=== PATIENT | male | born 1960 | race Caucasian/White ===

== ENCOUNTER 2019-06-04 07:10 | Emergency (ER) | payer BC ==
[~2019-06-04] VITALS: Ht 167.6 cm; Wt 78.0 kg
[~2019-06-04 07:10] MED LIST: ASPIRIN325 PO; FISH OIL 1,001000 M2 PO; HYDROCODON-ACE1 EAC7 PO; LIPITOR 20 MG T20 M1 PO; NOHOMEMEDICATIONS; PAXIL10 MG; PERCOCET 5-3251 EACH PO; PRILOSEC20 MG PO; RANITIDINE HCL300 M1 PO
[2019-06-04] MEDS ORDERED: NORVASC5 MG PO (07:18)
[2019-06-04 08:06] LABS: ABSOLUTE BASOPHILS 0.1 thou/uL (0.0-0.2); ABSOLUTE EOSINOPHILS 0.2 thou/uL (0.0-0.7); ABSOLUTE LYMPHOCYTES 1.4 thou/uL (0.8-5.3); ABSOLUTE MONOCYTES 0.7 thou/uL (0.0-1.2); ABSOLUTE NEUTROPHILS 10.8 thou/uL (1.6-8.1); BASOPHILS 0.5 %; EOSINOPHILS 1.6 %; HEMATOCRIT 45.9 % (42.0-52.0); HEMOGLOBIN 15.8 gm/dL (14.0-18.0); LYMPHOCYTES 10.6 %; MCHC 34.5 g/dL (28.0-37.0); MONOCYTES 5.1 %; MPV 9.1 fl. (7.2-11.1); NUCLEATED RBCS 0 /100WBC; PLATELET COUNT* 226 thou/uL (150-400); POLYS 82.2 %; RBC 5.28 mil/uL (4.50-6.00); WBC 13.2 thou/uL (4.0-11.0)
[2019-06-04 08:16] LABS: ANION GAP 8 mmol/L (7-16); BUN 7 mg/dL (7-18); CALCIUM 8.4 mg/dL (8.5-10.1); CHLORIDE 103 mmol/L (98-107); CO2 32 mmol/L (21-32); CREATININE 0.9 mg/dL (0.6-1.3); GLUCOSE 106 mg/dL (70-99); POTASSIUM 3.2 mmol/L (3.5-5.1); SODIUM 143 mmol/L (136-145)
[2019-06-04 08:20] LABS: APTT 31.1 Seconds (25.0-31.3)
[2019-06-04 08:26] LABS: ALBUMIN 3.9 g/dL (3.4-5.0); ALKALINE PHOSPHATASE 83 U/L (46-116); NT-PRO BRAIN NAT PEPTIDE 31 pg/mL (<300); SGOT 17 U/L (15-37); SGPT 26 U/L (30-65); TOTAL BILIRUBIN 0.5 mg/dL (<0.1-1.0); TOTAL PROTEIN 7.7 g/dL (6.4-8.2); TROPONIN-I LEVEL <0.06 ng/mL (<0.06)
[2019-06-04] MEDS ORDERED: ANTIVERT25 MG PO (08:48)
[2019-06-04 09:25] VITALS: BP 133/78
--- NOTE | 2019-06-04 10:30 | EKG ---
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: : 1960 Requested By: Anibal Del Valle Order Number: [id number] MD: Stefano Main Measurements Intervals [place] Rate: 62 P: 59 ME: 164 QRS: 17 QRSD: 93 T: 25 QT: 598 QTc: 608 Interpretive Statements Sinus rhythm nonspecific t wave change Probable anteroseptal infarct, old Prolonged QT interval Compared to ECG 11/11/2015 15:39:04 Myocardial infarct finding now present Prolonged QT interval now present Electronically Signed On 06-04-2019 10:30:30 CDT by Stefano Main [email or web address] <ELECTRONICALLY SIGNED> By: Stefano Main MD, [facility] 06/04/19 1030 0747 0747 Stefano Main MD, [facility] /EPI
== END 2019-06-04 09:32 | disposition home or self-care (01) ==
LOC: M.ERS 07:10
PROVIDERS: Emergency Medicine
DX: H83.09 Labyrinthitis, unspecified ear (principal); Z90.49 Acquired absence of other specified parts of digestive tract; Z95.5 Presence of coronary angioplasty implant and graft

== ENCOUNTER 2019-09-23 10:17 | Emergency (ER) | payer OTHER, BC ==
[~2019-09-23] VITALS: Ht 167.6 cm; Wt 75.8 kg
[~2019-09-23 10:17] MED LIST changes: +ANTIVERT25 MG PO; +NORVASC5 MG PO
[2019-09-23] MEDS ORDERED: LEVO-T75 MCG PO (10:35)
[2019-09-23] MEDS ORDERED: NORCO 5-325 TA1 EAC1 PO (11:51)
[2019-09-23] MEDS ORDERED: IBUPROFEN 800800 M1 PO (11:51)
[2019-09-23 12:08] VITALS: BP 138/88
== END 2019-09-23 12:09 | disposition home or self-care (01) ==
LOC: M.ERS 10:17
DX: S60.221A Contusion of right hand, initial encounter (principal); M25.511 Pain in right shoulder; M25.521 Pain in right elbow; Z88.1 Allergy status to other antibiotic agents; Z90.49 Acquired absence of other specified parts of digestive tract; Z95.5 Presence of coronary angioplasty implant and graft; W18.39XA Other fall on same level, initial encounter; Y93.89 Activity, other specified; Y92.89 Other specified places as the place of occurrence of the external cause; Y99.8 Other external cause status

== ENCOUNTER 2020-08-09 00:26 | Inpatient (IN) | payer BC ==
[2020-08-09] VITALS (21 sets, daily range): BP systolic 104–139; BP diastolic 58–74
[~2020-08-09] VITALS: Ht 167.6 cm; Wt 66.7 kg
[~2020-08-09 00:26] MED LIST changes: +IBUPROFEN 800800 M1 PO; +LEVO-T75 MCG PO; +NORCO 5-325 TA1 EAC1 PO
[2020-08-09 01:06] LABS: ABSOLUTE BASOPHILS 0.1 thou/uL (0.0-0.2); ABSOLUTE EOSINOPHILS 0.3 thou/uL (0.0-0.7); ABSOLUTE LYMPHOCYTES 3.8 thou/uL (0.8-5.3); ABSOLUTE MONOCYTES 0.7 thou/uL (0.0-1.2); ABSOLUTE NEUTROPHILS 7.3 thou/uL (1.6-8.1); BASOPHILS 0.5 %; EOSINOPHILS 2.7 %; HEMATOCRIT 48.9 % (42.0-52.0); HEMOGLOBIN 16.7 gm/dL (14.0-18.0); LYMPHOCYTES 31.1 %; MCHC 34.2 g/dL (28.0-37.0); MCV 90.8 fL (80.0-100.0); MONOCYTES 5.8 %; MPV 8.7 fl. (7.2-11.1); NUCLEATED RBCS 0 /100WBC; PLATELET COUNT* 246 thou/uL (150-400); POLYS 59.9 %; RBC 5.38 mil/uL (4.50-6.00); RDW-CV 14.9 % (10.5-14.5); WBC 12.2 thou/uL (4.0-11.0)
[2020-08-09 01:11] LABS: CALCIUM 8.8 mg/dL (8.5-10.1); POTASSIUM 3.3 mmol/L (3.5-5.1)
[2020-08-09 01:15] LABS: PROTIME 10.7 Seconds (9.20-11.50)
[2020-08-09 01:22] LABS: ALBUMIN 4.3 g/dL (3.4-5.0); TOTAL BILIRUBIN 0.5 mg/dL (<0.1-1.0); TOTAL PROTEIN 8.2 g/dL (6.4-8.2)
--- NOTE | 2020-08-09 04:02 | NUR ---
PT ADMITTED TO ICU FOR CODE STEMI, POST CARDIAC CATHETERIZTION. SHEATH PRESENT TO RIGHT GROIN. GROIN SITE SOFT, NO BLEEDING, BRUISING OR HEMATOMA. PT INSTRUCTED TO LAY FLAT WITH RIGHT LEG STRAIGHT THROUGHOUT SHIFT. PT INFORMED THAT CHIEF GUARD PERSON WILL REMOVE SHEATH BETWEEN 0700 AND 0730. ANGIOMAX AND IV FLUIDS INFUSING VIA RIGHT WRIST SALINE LOCK. PT INSTRUCTED TO SPLINT GROIN IF COUGHING, SNEEZING OR BEARING DOWN. PT INSTRUCTED TO CALL NURSE IF BLEEDING OR SWELLING OCCUR AT GROIN SITE. PT ORIENTED TO ROOM AND CALL LIGHT.
[2020-08-09 07:59] LABS: CHOLESTEROL 146 mg/dL (<200); HDL CHOLESTEROL 27 mg/dL (>40); LDL CHOLESTEROL 97 mg/dL (<100); TC:HDL 5.4 Ratio (Not establshd); TRIGLYCERIDE 112 mg/dL (<150); VLDL 22 mg/dL (<40)
[2020-08-09 08:13] LABS: SERUM ASSESSMENT Clear
--- NOTE | 2020-08-09 08:36 | H ---
[address] [address] HISTORY AND PHYSICAL Name: PRINCE HANNAH Room: [address] IN ..#: [id number] Admission: 08/09/20 Attend Phys: Dmitry Avila Discharge: Date of : 62 Report #: [id number] THIS REPORT FOR: //name// cc: SUZETTE - Family physician unknown FAM - Family physician unknown ~ CC: SUZETTE unknown Tobias Tracy DATE OF SERVICE: 08/09/2020 INDICATION: Chest pain. HISTORY OF PRESENT ILLNESS: This is a 59-year-old gentleman with a history of hypertension, tobacco use, presenting with chest and abdominal pain. Early in the day, he had developed epigastric and mid back pain, it was waxing and waning throughout the day. Several hours prior to admission, he took a bath and the pain radiated up to the chest area. He denies any shortness of breath or diaphoresis. There is no recent history of fever, chills, nausea, or diarrhea. In the ER, he was noted to have ST elevation in the inferior leads. He denies any history of PND or orthopnea. PAST MEDICAL HISTORY: Hypertension, had been on meds but discontinued after weight reduction. Denies any history of diabetes mellitus. ALLERGIES: None. MEDICATIONS: None. SOCIAL HISTORY: Positive tobacco use, 1 pack per day. FAMILY HISTORY: Father with a history of an [facility] in his 50s. REVIEW OF SYSTEMS: See HPI. PHYSICAL EXAMINATION: VITAL SIGNS: Blood pressure is 115/60, heart rate is 49 beats per minute. GENERAL APPEARANCE: This is a well-developed, well-nourished male in mild distress. HEENT: Normocephalic, atraumatic. Oral mucosa moist. NECK: Supple. LUNGS: Clear to auscultation. CARDIAC: Regular rate and rhythm, S1, S2 positive. ABDOMEN: Soft, nontender. EXTREMITIES: No edema, no cyanosis. LABORATORY VALUES: [place] [address] HISTORY AND PHYSICAL Name: PRINCE HANNAH Room: [address] IN ..#: [id number] Admission: 08/09/20 Attend Phys: Dmitry Avila Discharge: Date of : 62 Report #: [id number] ECG reveals sinus bradycardia with ST elevation inferiorly. ASSESSMENT AND PLAN: 1. Acute inferior wall myocardial infarction, the patient will be taken emergently to the cardiac hemodialysis lab technician. This was discussed with the patient and his . They voiced understanding and wished to proceed. 2. Bradycardia, most likely related to acute inferior wall myocardial infarction. We will follow for now. 3. Hypertension, stable blood pressure. 4. Tobacco use, complete smoking cessation is advised. 5. Hypercholesterolemia, will start a statin medication. <ELECTRONICALLY SIGNED> By: Jonh Arroyo MD 08/09/20 0836 0119 0131Jonh Arroyo MD /fernanda
--- NOTE | 2020-08-09 09:15 | CARD ---
[address] [address] CARDIAC CATH REPORT Name: PRINCE HANNAH Room: [address] IN [facility]#: [id number] Admission: 08/09/20 Attend Phys: Dmitry Avila Discharge: Date of : 62 Report #: [id number] THIS REPORT FOR: //name// cc: FAM - Family physician unknown FAM - Family physician unknown ~ APPROVED REPORT Study performed: 08/09/2020 00:55:43 Patient Details Patient Status: ED STEMI Room #: ICU The patient is a 59 year-old male Event Personnel Jonh Arroyo Care Associate, Irene Garcia RN, Ava Norton RN RN, Marguerite Banda RTR Scrub, Nicolle Galeas RTR Monitor Procedures Performed Art Access - R femoral artery* Left Heart Cath w/or w/o Coronaries [id number] [facility] KATHY Revasc AMI Total/Sub Single RCA C9606 AMIREVSING Indication STEMI (>0 to less than or equal to 6 hours), Chest pain Risk Factors Family History, Hypercholesterolemia, Hypertension, Tobacco History () Admission/Lab Medications/Medications given during procedure Angiomax IV 10 ml, Angiomax IV 23.8 ml per hr, Atropine IV 1 mg, Nitroglycerin IC 200 mcg Procedure Narrative The patient was brought emergently to the Cardiac Catheterization Laboratory and was prepped and draped in a sterile manner. The right femoral was infiltrated with 2% Lidocaine subcutaneous anesthesia. A 6F [place] sheath was inserted into the right femoral artery. Coronary angiography was performed using coronary diagnostic catheters. The right coronary system was accessed and visualized with a 6F JR 4.0 guide catheter. The left coronary system was accessed and visualized with a 6F JL4 catheter. The left ventricle was accessed and visualized with a 6F Pigtail catheter. Left ventricular/Aortic Valve gradient assessed via catheter pullback[place] [address] CARDIAC CATH REPORT Name: PRINCE HANNAH Room: [address] IN [facility]#: [id number] Admission: 08/09/20 Attend Phys: Dmitry Avila Discharge: Date of : 62 Report #: [id number] was performed in STYLES projection. The patient tolerated the procedure well and there were no complications associated with the procedure. There was no hematoma. Sheath was sutured in place with tegaderms. Intraoperative Conscious Sedation Sedation start time: 1:25 Case end Time: 2:03 Fentanyl 25 mcg Versed 1 mg Fluoro Time: 11.3 minutes Dose: DAP 90077 cGycm2 26036 mGy Contrast Type and Amount: Visipaque 190 ml Coronary Angiography The patient's coronary anatomy is right dominant. Diagnostic Cath Left Main The left main artery is a large-caliber vessel, appears angiographically normal. LAD The LAD is a moderate-sized caliber vessel, traverses the anterior wall and wraps around the apex. This vessel appears angiographically normal. Diagonal 1 This is a small to moderate-sized caliber vessel, patent with no flow-limiting lesions. Circumflex Supplies 1 moderate-sized OM vessel. OM1 This is a moderate-sized caliber vessel, supplies several branches as it travels the lateral wall. There is mild disease in the proximal segment, 20%. Right Coronary The RCA is a dominant vessel with a total occlusion proximally. Left Ventriculography The left ventricle is normal in size with normal contractility. The left ventricular ejection fraction is estimated to be 50-55%. There is mild hypokinesis of the basal inferior segment. Hemodynamics The aortic pressure is 105/49 mmHg with a mean of 73 mmHg. The left ventricular pressure is 110/-2 mmHg with a mean of mmHg. The left ventricular end diastolic pressure is 12 mmHg. PCI Technique Lesion Anticoagulation was achieved with Angiomax. Patient was preloaded with Angiomax IV 10 ml. Percutaneous coronary intervention was performed on the proximal right coronary artery[place] [address] CARDIAC CATH REPORT Name: PRINCE HANNAH Room: [address] [place] M.R.#: [id number] Admission: 08/09/20 Attend Phys: Dmitry Avila Discharge: Date of : 62 Report #: [id number] prior to intervention was 100% with MANJIT 1 flow. A 6Fr JR 4.0 SH Guide Catheter was used to engage the right ostium. A Luge Wire 180 Interventional Guidewire was used to cross the lesion. BALLOON DILATION A Balloon catheter Trek RX 2.25 X 12 was inserted and inflated up to 12.00atm for 13seconds. Additional Inflation: 14.00atm for 23seconds. STENT DEPLOYMENT A drug-eluting stent Kendall RX Stent 2.40V24ji was inserted and inflated up to 14.00atm for 21seconds. POST STENT DEPLOYMENT BALLOON DILATION A Balloon catheter NC Euphora 3.0x12 was inserted and inflated up to 18.00atm for 21seconds. Additional Inflation: 18.00atm for 11seconds. Final angiography reveals 0 % stenosis with MANJIT 3 flow. Conclusion 1. Successful insertion of a drug-eluting stent into the proximal RCA occlusion. 2. There is mild disease in the first obtuse marginal artery. 3. There is normal LV systolic function, with subtle hypokinesis of the basal inferior segment. 4. Recommend dual antiplatelet therapy and aggressive risk factor management. <ELECTRONICALLY SIGNED> By: Jonh Arroyo MD 08/09/20914 4 4Jonh Arroyo MD /INF
--- NOTE | 2020-08-09 14:00 | NUR ---
ASSUMED CARE OF PATIENT FROM THE ICU. PT IS ALERT AND AWAKE WITH MILD CO FO APIN WELL CONTROLLED WITH PO MUSCLE RELAXERS. HE WAS EDUCATED ON PLAN OF CARE, DISEASE PROCESS AND FALL SAFETY. BED IS IN LOWEST POSITION AND CALL LIGHT IS IN REACH. WILL CONTINUE TO MONITOR.
--- NOTE | 2020-08-09 15:41 | NUR ---
FEMORAL SHEATH REMOVED AT 0830. VSS. DISTAL PULSES 2+. RT GROIN SITE DSG C/D/I FLEXERIL GIVEN ONCE FOR BACK PAIN. PAIN PARTIALLY CONTROLLED. TOLERATING DIET. GOOD UOP. REPORT GIVEN TO OSMEL LAL.
--- NOTE | 2020-08-09 17:43 | EKG ---
[place] [address] ELECTROCARDIOGRAM REPORT Name: PRINCE HANNAH Room: [address] M.R.#: [id number] Admission: 08/09/20 Attend Phys: Tobias Tracy Discharge: Date of : 62 Date of Service: 08/09/20 0301 Report #: [id number] THIS REPORT FOR: //name// 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 : 1960 Requested By: Juan Pablo Roldan Order Number: [id number] Monserrat MD: Bryce Villagomez Measurements Intervals [place] Rate: 60 P: 77 ND: 161 QRS: 36 QRSD: 96 T: 68 QT: 435 QTc: 435 Interpretive Statements Sinus rhythm Anteroseptal infarct, age indeterminate Compared to ECG 08/09/2020 00:35:13 Sinus bradycardia no longer present Myocardial infarct finding still present Electronically Signed On 08-09-2020 17:43:22 CDT by Bryce Villagomez [email or web address] <ELECTRONICALLY SIGNED> By: Bryce Villagomez MD, FAC 08/09/20 1743 0 0 Bryce Villagomez MD, FAC /EPI
--- NOTE | 2020-08-09 17:43 | EKG ---
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: [place] : 1960 Requested By: Yoeltte Buenrostro Order Number: [id number] MD: Bryce Villagomez Measurements Intervals [place] Rate: 48 P: 63 PA: 151 QRS: 51 QRSD: 80 T: 99 QT: 471 QTc: 421 Interpretive Statements Sinus bradycardia Inferior infarct, acute (RCA) Probable RV involvement, suggest recording right precordial leads Compared to ECG 06/04/2019 07:47:09 Sinus rhythm no longer present T-wave abnormality no longer present Prolonged QT interval no longer present Myocardial infarct finding still present Electronically Signed On 08-09-2020 17:43:02 CDT by Bryce Villagomez [email or web address] <ELECTRONICALLY SIGNED> By: Bryce Villagomez MD, [facility] 08/09/20 1743 Bryce Villagomez MD, [facility] /EPI
[2020-08-10 00:18] VITALS: BP 113/71
[2020-08-10 02:06] LABS: GLYCOHEMOGLOBIN (HGB A1C) 5.7 % (4.8-5.6)
[2020-08-10 04:34] VITALS: BP 104/68
[2020-08-10 05:34] LABS: HEMATOCRIT 44.5 % (42.0-52.0); HEMOGLOBIN 15.5 gm/dL (14.0-18.0); MCH 31.3 pg (26.0-34.0); MCHC 34.7 g/dL (28.0-37.0); MPV 8.5 fl. (7.2-11.1); RBC 4.94 mil/uL (4.50-6.00); RDW-CV 14.7 % (10.5-14.5); WBC 11.2 thou/uL (4.0-11.0)
[2020-08-10 05:55] LABS: ALBUMIN 3.6 g/dL (3.4-5.0); CALCIUM 8.2 mg/dL (8.5-10.1); CREATININE 0.9 mg/dL (0.6-1.3); MAGNESIUM 1.8 mg/dL (1.8-2.4); TOTAL BILIRUBIN 0.9 mg/dL (<0.1-1.0); TOTAL PROTEIN 7.2 g/dL (6.4-8.2)
[2020-08-10 05:56] LABS: TROPONIN-I LEVEL 6.5 ng/mL (<0.06)
[2020-08-10 08:00] VITALS: BP 96/66
[2020-08-10] MEDS ORDERED: LIPITOR 40 MG T40 M1 PO (08:57)
[2020-08-10] MEDS ORDERED: BRILINTA90 MG PO (08:57)
[2020-08-10] MEDS ORDERED: ASPIR 8181 MG PO (08:59)
--- NOTE | 2020-08-10 09:11 | NUR ---
Interview at bedside with patient. Lives at home with fiancee. Indep in ADLs. Still drives. Shared that his mom is nurse. No history of HH
--- NOTE | 2020-08-10 10:59 | NUR ---
ASSUMED CARE OF PATIENT THIS MORNING FROM NIGHT NURSE. PT IS DOING WELL WITH NO CO OF PAIN OR NAUSEA. HE WAS GIVEN DISCHARGE INSTRUCTIONS AND A LIST OF HOME MEDICATIONS. WILL CONTINUE TO MONITOR.
[2020-08-10 11:08] VITALS: BP 96/66
--- NOTE | 2020-08-10 11:30 | NUR ---
PT DISCHARGED HOME WITH A LIST OF HOME MEDICATIONS, DISCHARGE INSTRUCTIONS AND A SAMPLE OF BRILENTA. WITH PT.
[2020-08-10 11:42] VITALS: BP 117/71
== END 2020-08-10 11:39 | disposition home or self-care (01) | DRG 247 ==
LOC: M.ERS 00:26 → M.TBA-CV 01:12 → M.ICU 01:24 → M.2W 15:54
PROVIDERS: Emergency Medicine; Internal Medicine; Registered Nurse; ADMIT Internal Medicine; ATTEND Internal Medicine
PROC: 4A023N7 Measurement of Cardiac Sampling and Pressure, Left Heart, Percutaneous Approach (ICD-10-PCS; principal; 2020-08-09)
PROC: B211YZZ Fluoroscopy of Multiple Coronary Arteries using Other Contrast (ICD-10-PCS; principal; 2020-08-09)
PROC: 027034Z Dilation of Coronary Artery, One Artery with Drug-eluting Intraluminal Device, Percutaneous Approach (ICD-10-PCS; principal; 2020-08-09)
PROC: B215YZZ Fluoroscopy of Left Heart using Other Contrast (ICD-10-PCS; principal; 2020-08-09)
DX: I21.19 ST elevation (STEMI) myocardial infarction involving other coronary artery of inferior wall (principal); I10 Essential (primary) hypertension; E78.00 Pure hypercholesterolemia, unspecified; R00.1 Bradycardia, unspecified; F17.210 Nicotine dependence, cigarettes, uncomplicated; I25.10 Atherosclerotic heart disease of native coronary artery without angina pectoris; Z20.828 Contact with and (suspected) exposure to other viral communicable diseases; Z90.49 Acquired absence of other specified parts of digestive tract; Z88.1 Allergy status to other antibiotic agents; Z82.49 Family history of ischemic heart disease and other diseases of the circulatory system; Z71.6 Tobacco abuse counseling; Z79.899 Other long term (current) drug therapy

== ENCOUNTER 2020-09-27 08:41 | Observation (INO) | payer BC ==
[~2020-09-27] VITALS: Ht 167.6 cm; Wt 66.7 kg
[~2020-09-27 08:41] MED LIST changes: +ASPIR 8181 MG PO; +BRILINTA90 MG PO; +LIPITOR 40 MG T40 M1 PO
[2020-09-27 08:46] VITALS: BP 183/66
[2020-09-27 09:12] LABS: ABSOLUTE BASOPHILS 0.1 thou/uL (0.0-0.2); ABSOLUTE EOSINOPHILS 0.3 thou/uL (0.0-0.7); ABSOLUTE LYMPHOCYTES 1.7 thou/uL (0.8-5.3); ABSOLUTE MONOCYTES 0.5 thou/uL (0.0-1.2); BASOPHILS 1.2 %; EOSINOPHILS 4.5 %; HEMOGLOBIN 14.5 gm/dL (14.0-18.0); LYMPHOCYTES 25.6 %; MCH 30.9 pg (26.0-34.0); MCHC 33.7 g/dL (28.0-37.0); MCV 91.8 fL (80.0-100.0); MONOCYTES 7.8 %; MPV 8.6 fl. (7.2-11.1); NUCLEATED RBCS 0 /100WBC; PLATELET COUNT* 214 thou/uL (150-400); POLYS 60.9 %; RBC 4.68 mil/uL (4.50-6.00); RDW-CV 14.2 % (10.5-14.5); WBC 6.6 thou/uL (4.0-11.0)
[2020-09-27 09:22] LABS: CALCIUM 8.4 mg/dL (8.5-10.1); CREATININE 0.8 mg/dL (0.6-1.3); POTASSIUM 3.7 mmol/L (3.5-5.1)
[2020-09-27 09:27] LABS: APTT 29.4 Seconds (25.0-31.3); PROTIME 10.6 Seconds (9.20-11.50)
[2020-09-27 09:32] LABS: ALBUMIN 3.9 g/dL (3.4-5.0); TOTAL BILIRUBIN 0.5 mg/dL (<0.1-1.0); TOTAL PROTEIN 7.4 g/dL (6.4-8.2)
--- NOTE | 2020-09-27 10:18 | NUR ---
0959, DR KAT, CARDIOLOGY STATES PT IS CLEARED FROM CARDIOLOGY
--- NOTE | 2020-09-27 12:01 | NUR ---
ADMIT DONE IN ER.
[2020-09-27 12:02] VITALS: BP 124/80
[2020-09-27 12:35] VITALS: BP 104/43
[2020-09-27 12:40] VITALS: BP 104/43
--- NOTE | 2020-09-27 13:43 | CON ---
[address] [address] CONSULTATION Name: BRIELLEPRINCE Dmitry [id number] Admission: 09/27/20 Attend Phys: Carson Canseco MD Discharge: 09/27/20 Date of : 62 Report #: [id number] THIS REPORT FOR: //name// cc: Argenis Pinto MD, Jennifer S. MD ~ DATE OF SERVICE: 09/27/2020 HISTORY OF PRESENT ILLNESS: The patient is a 59-year-old single white male who I was asked to see in the hospital today after he complained of chest pain. The patient has a long history of hypertension and hyperlipidemia. However, in December 2019, he lost a significant amount of weight and stopped taking his blood pressure pills and cholesterol pills. He did well until July 2020 when he was at home when he had a sudden onset of epigastric discomfort that did not go away. After a couple of hours, he called EMS who brought him here to [facility] at about 12:00 midnight. He was found to be having acute inferior STEMI. He was seen urgently by Dr. Arroyo, who performed emergent cardiac catheterization from the femoral approach. He was noted to have complete occlusion of the proximal right coronary artery. The LAD had no significant stenosis. The circumflex had a marginal branch and had a 40% stenosis. Dr. Arroyo then performed emergent angioplasty and placed a single stent in the right coronary artery with good results. He was then placed on aspirin and Brilinta. He has done well since his discharge. No recurrent chest pain, shortness of breath, palpitations, syncope, bleeding. He actually returned to see my nurse practitioner recently. She made no changes in medications. He was doing well until this morning. He was at work when he felt some pressure in his right upper quadrant, it went into his shoulder. He denies shortness of breath, diaphoresis, nausea. He had no belch with the episode. He has had no recent fever or cough. Denied any palpitations or syncope. His boss called the ambulance who brought him here to [facility] for further evaluation and treatment. At this time, the pressure is resolved. PAST MEDICAL AND SURGICAL HISTORY: He has had appendectomy, cholecystectomy, left shoulder surgery, hypertension, hyperlipidemia, hypothyroidism. CURRENT MEDICATIONS: Include: 1. Aspirin. 2. Brilinta twice a day. 3. Lipitor. ALLERGIES: He has allergy to AMOXICILLIN. FAMILY HISTORY: Positive for heart disease. SOCIAL HISTORY: He is . He lives in [place]. Works at [employer]. He smoked a pack of cigarettes a day until July 2020 when he quit. No alcohol abuse. [place] [address] CONSULTATION Name: PRINCE HANNAH Room: [address] MMarli#: [id number] Admission: 09/27/20 Attend Phys: Carson Canseco MD Discharge: 09/27/20 Date of : 62 Report #: [id number] REVIEW OF SYSTEMS: No history of stroke, asthma, liver disease, kidney disease, cancer, psychiatric illness, chronic skin condition. PHYSICAL EXAMINATION: GENERAL: Revealed a middle-aged male, lying in bed. He appeared in no distress. VITAL SIGNS: He had a blood pressure of 130/80, pulse 60. He was afebrile. HEENT: He was anicteric. Conjunctivae pink. Mucous membranes moist. NECK: Neck veins nondistended. No carotid bruits. Neck supple. CHEST: Clear to auscultation. CARDIAC: Regular rate and rhythm without rub. ABDOMEN: Soft. EXTREMITIES: Had no edema. Posterior tibial pulse 1+ bilaterally. SKIN: Cool and dry. NEUROLOGIC: Nonfocal. LYMPH: No adenopathy. MUSCULOSKELETAL: No joint effusion. RADIOLOGICAL DATA: His ECG on admission showed sinus rhythm, small inferior Q-waves. LABORATORY WORK: His lab work in the Emergency Room showed normal heart size, clear lung donald. Sodium 136, creatinine ____, glucose 96. Liver function studies were normal. His troponins were all 0.06. His hemoglobin is 14.5. IMPRESSION AND RECOMMENDATIONS: 1. Chest pain. Atypical for angina. Recommend medical therapy. At this time, I think it is reasonable to discharge the patient from the Emergency Room. 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 Jean Paul Paige. I would continue aspirin and Brilinta. 2. History of hypertension. If blood pressure remains elevated, I would consider adding an ANGEL inhibitor. I would not recommend a beta-bola because of bradycardia. 3. Hyperlipidemia. The patient is on a statin drug. 4. Previous tobacco abuse. Fortunately, the patient no longer smokes. <ELECTRONICALLY SIGNED> By: Prince Main MD, FACC 09/27/20 1343 1210 1248Daviradha Main MD, FACC /nt
--- NOTE | 2020-09-27 13:57 | EKG ---
[place] [address] ELECTROCARDIOGRAM REPORT Name: PRINCE HANNAH Room: [address]#: [id number] Admission: 09/27/20 Attend Phys: Carson Canseco, Discharge: 09/27/20 Date of : 62 Date of Service: 09/27/20 0845 Report #: [id number] THIS REPORT FOR: //name// [facility] ED Test Date: 2020-09-27 Test Time: 08:45:21 Pat Name: PRINCE HANNAH Department: Room: 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
== END 2020-09-27 12:39 | disposition home or self-care (01) ==
LOC: M.ERS 08:41 → M.TBA-ER 11:07
PROVIDERS: Personal Emergency Response Attendant; ADMIT Internal Medicine; ATTEND Internal Medicine
DX: I25.110 Atherosclerotic heart disease of native coronary artery with unstable angina pectoris (principal); E78.5 Hyperlipidemia, unspecified; R42 Dizziness and giddiness; R73.03 Prediabetes; I16.1 Hypertensive emergency; Z98.890 Other specified postprocedural states; Z90.49 Acquired absence of other specified parts of digestive tract; Z77.22 Contact with and (suspected) exposure to environmental tobacco smoke (acute) (chronic)

== ENCOUNTER 2021-03-09 22:54 | Emergency (ER) | payer OTHER ==
[~2021-03-09] VITALS: Ht 167.6 cm; Wt 66.7 kg
[2021-03-09] MEDS ORDERED: NITROSTAT0.4 M1 SUBLING (23:13)
[2021-03-09 23:30] LABS: ABSOLUTE BASOPHILS 0.1 thou/uL (0.0-0.2); ABSOLUTE EOSINOPHILS 0.3 thou/uL (0.0-0.7); ABSOLUTE LYMPHOCYTES 1.7 thou/uL (0.8-5.3); ABSOLUTE MONOCYTES 0.7 thou/uL (0.0-1.2); ABSOLUTE NEUTROPHILS 5.5 thou/uL (1.6-8.1); EOSINOPHILS 3.6 %; HEMATOCRIT 44.4 % (42.0-52.0); LYMPHOCYTES 20.6 %; MCH 30.5 pg (26.0-34.0); MCHC 33.7 g/dL (28.0-37.0); MCV 90.5 fL (80.0-100.0); MONOCYTES 8.2 %; MPV 8.6 fl. (7.2-11.1); NUCLEATED RBCS 0 /100WBC; PLATELET COUNT* 228 thou/uL (150-400); POLYS 66.6 %; RBC 4.91 mil/uL (4.50-6.00); RDW-CV 14.5 % (10.5-14.5); WBC 8.2 thou/uL (4.0-11.0)
[2021-03-09 23:39] LABS: CALCIUM 8.8 mg/dL (8.5-10.1); CREATININE 1.1 mg/dL (0.6-1.3); POTASSIUM 3.8 mmol/L (3.5-5.1)
[2021-03-09 23:43] LABS: TOTAL BILIRUBIN 0.5 mg/dL (<0.1-1.0); TOTAL PROTEIN 7.4 g/dL (6.4-8.2)
[2021-03-09 23:54] LABS: APTT 28.8 Seconds (25.0-31.3)
[2021-03-10 01:36] VITALS: BP 100/62
--- NOTE | 2021-03-10 10:29 | EKG ---
[place] [address] ELECTROCARDIOGRAM REPORT Name: PRINCE HANNAH Room: [facility]#: [id number] Admission: 03/09/21 Attend Phys: Discharge: 03/10/21 Date of : 62 Date of Service: 03/09/21 2259 Report #: [id number] THIS REPORT FOR: //name// 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
== END 2021-03-10 01:36 | disposition home or self-care (01) ==
LOC: M.ERS 22:54
PROVIDERS: Personal Emergency Response Attendant
DX: I20.8 Other forms of angina pectoris (principal); I25.2 Old myocardial infarction; Z95.5 Presence of coronary angioplasty implant and graft; Z90.49 Acquired absence of other specified parts of digestive tract; Z98.890 Other specified postprocedural states; Z79.82 Long term (current) use of aspirin; Z79.899 Other long term (current) drug therapy